=== PATIENT | male | born 1980 | race Caucasian/White ===

== ENCOUNTER 2017-05-01 08:20 | Emergency (ER) | payer MEDICAID ==
[~2017-05-01] VITALS: Ht 182.9 cm; Wt 103.0 kg
[~2017-05-01 08:20] MED LIST: DICL75 PO; SERO300T PO; TRAM50 PO
[2017-05-01 08:23] VITALS: BP 130/78; PULSE 105; RESP 16; TEMP 98.1; O2SAT 98
[2017-05-01] MEDS ORDERED: SERO300T PO (08:35)
[2017-05-01] MEDS ORDERED: BUPR100CR PO (08:35)
--- NOTE | 2017-05-01 08:44 | PD ---
HPI Chief Complaint: Foreign Body Time Seen by Provider: 08:35 Travel History International Travel<30 days: No Contact w/Intl Traveler<30days: No History of Present Illness HPI Patient is a 36 year old male who presents to ER with complaints of possible foreign body in left eye. Patient reports that he was working outside in his yard yesterday, reports something flew into his left eye. Patient reports that he still feels a foreign by station his left eye. Patient's tetanus is up to date. NO OTHER C/O PFSH Past Medical History Hx Anticoagulant Therapy: No Anxiety: Yes Diabetes: No Diminished Hearing: No Psychiatric: Yes (OCD) Immunizations Current: Yes Migraines: Yes Influenza Vaccination: No Past Surgical History Surgical History: No Previous Surgery Social History Alcohol Use: Yes (OCC) Tobacco Use: Yes (1/2 PPD) Substance Use: No Allergies-Medications (Allergen,Severity, Reaction): Coded Allergies: No Known Allergies (Verified , 05/01/17) Reported Meds & Prescriptions Reported Meds & Active Scripts Active Polytrim Opth Drops (Polymyxin/Trimethoprim Sulfate) 10,000-0.1 Unit/Ml-% Soln 2 Drop LEFT EYE Q6HR 10 Days Reported Wellbutrin SR 12 HR (Bupropion HCl) 100 Mg Tab Unknown Dose PO DAILY Seroquel (Quetiapine Fumarate) 300 Mg Tab 600 Mg PO HS Review of Systems General / Constitutional: No: Fever Eyes: Positive: Foreign Body Sensation, Tearing, No: Diploplia, Blurred Vision , Photophobia, Drainage, Pain, Visual changes HENT: No: Headaches Cardiovascular: No: Chest Pain or Discomfort Respiratory: No: Shortness of Breath Gastrointestinal: No: Abdominal Pain Genitourinary: No: Dysuria Musculoskeletal: No: Pain Skin: No Rash Neurologic: No: Weakness Psychiatric: No: Depression Endocrine: No: Polydipsia Hematologic/Lymphatic: No: Easy Bruising Physical Exam Narrative GENERAL: Well-nourished, well-developed patient. SKIN: Focused skin assessment warm/dry. HEAD: Normocephalic. EYES: No scleral icterus. No injection or drainage. Wood's lamp utilized to evaluate for possible corneal abrasion. Patient with pinpoint corneal abrasion to left eye at 11 o'clock position. No hyphema, no hypopyon, no obvious foreign body. NECK: Supple, trachea midline. No JVD or lymphadenopathy. CARDIOVASCULAR: Regular rate and rhythm without murmurs, gallops, or rubs. RESPIRATORY: Breath sounds equal bilaterally. No accessory muscle use. GASTROINTESTINAL: Abdomen soft, non-tender, nondistended. MUSCULOSKELETAL: No cyanosis, or edema. BACK: Nontender without obvious deformity. No CVA tenderness. Data Data Last Documented VS Vital Signs Date Time Temp Pulse Resp B/P Pulse Ox O2 Delivery O2 Flow Rate FiO2 05/01/17 08:23 98.1 105 16 130/78 98 Orders Proparacaine 0.5% Opth Soln (Alcaine 0.5 (05/01/17 08:45) MDM Medical Decision Making Medical Screen Exam Complete: Yes Emergency Medical Condition: Yes Interpretation(s) Vital Signs Date Time Temp Pulse Resp B/P Pulse Ox O2 Delivery O2 Flow Rate FiO2 05/01/17 08:23 98.1 105 16 130/78 98 Differential Diagnosis Differential includes corneal abrasion, hyphema (though unlikely), hypopyon ( though unlikely), foreign body in eye Narrative Course 36-year-old male who presents to emergency with complaints of foreign body in left eye after working in his yard yesterday. Patient does not use contact lenses or glasses at baseline. Tetanus is up-to-date. Proparacaine ophthalmic drops placed into the left eye as well as fluorescein. Wood's lamp utilized to evaluate for possible corneal abrasion. Patient with pinpoint corneal abrasion to left eye at 11 o'clock position. Plan to treat for corneal abrasion. Patient will follow-up with residential framing carpenter and return to emergency room if needed. Diagnosis Primary Impression: Corneal abrasion, left Qualified Code: S05.02XA - Corneal abrasion, left, initial encounter Patient Instructions: General Instructions Additional Instructions: Please follow up with your residential framing carpenter in 2-3 days Use all medications as prescribed Return to the emergency room as needed or if symptoms worsen or persist Please wear protective eye wear Med/Other Pt SpecificInfo: Prescription(s) given Scripts Polymyxin B-Trimethoprim Opth Drops (Polytrim Opth Drops)10,000-0.1 Unit/Ml-% Soln2 Drop LEFT EYE Q6HR 10 Days Ref 0 Prov:Jess Ballard DO 05/01/17 Disposition: 01 DISCHARGE HOME Condition: Stable Jess Ballard DO May 01, 2017 08:44
[2017-05-01] MEDS ORDERED: PROPARACAINE HCL 0.5% OPHT SOLN 15 ML BTL LEFT EYE ONE (08:45)
[2017-05-01] MEDS ORDERED: POLY10O LEFT EYE (08:56)
== END 2017-05-01 09:18 | disposition home or self-care (01) ==
LOC: PHED 08:20
DX: S05.02XA Injury of conjunctiva and corneal abrasion without foreign body, left eye, initial encounter (principal); F17.200 Nicotine dependence, unspecified, uncomplicated; Z86.59 Personal history of other mental and behavioral disorders; W22.8XXA Striking against or struck by other objects, initial encounter; Y93.89 Activity, other specified; Y92.096 Garden or yard of other non-institutional residence as the place of occurrence of the external cause
CPT/HCPCS: 99283

== ENCOUNTER 2017-09-04 21:24 | Emergency (ER) | payer MEDICAID ==
[~2017-09-04] VITALS: Ht 182.9 cm; Wt 104.4 kg
[~2017-09-04 21:24] MED LIST changes: +BUPR100CR PO; -DICL75 PO; +POLY10O LEFT EYE; -TRAM50 PO
[2017-09-04 21:25] VITALS: BP 131/81; PULSE 89; RESP 16; TEMP 98.3; O2SAT 96
[2017-09-04] MEDS ORDERED: MECL-62 PO (21:40)
--- NOTE | 2017-09-04 21:41 | PD ---
HPI Chief Complaint: Dizziness Time Seen by Provider: 21:31 History of Present Illness HPI FOR OVER THE PAST 4 DAYS OR SO MORE AND MORE PERSISTENT DIZZINESS/ROOM SPINNING SENSATION....THAT IS NOT IMPROVING. WORSENED BY SUDDEN MOVEMENTS OF HEAD. PFSH Past Medical History Hx Anticoagulant Therapy: No Anxiety: Yes Diabetes: No Diminished Hearing: No Psychiatric: Yes (OCD) Immunizations Current: Yes Migraines: Yes Social History Alcohol Use: Yes (OCC) Tobacco Use: Yes (1/2 PPD) Substance Use: No Allergies-Medications (Allergen,Severity, Reaction): Coded Allergies: No Known Allergies (Verified Adverse Reaction, Unknown, 09/04/17) Reported Meds & Prescriptions Reported Meds & Active Scripts Active Reported Seroquel (Quetiapine Fumarate) 300 Mg Tab 600 Mg PO HS Review of Systems Except as stated in HPI: all other systems reviewed are Neg General / Constitutional: No: Fever Eyes: No: Visual changes HENT: Positive: Vertigo Cardiovascular: No: Chest Pain or Discomfort Respiratory: No: Shortness of Breath Gastrointestinal: No: Abdominal Pain Genitourinary: No: Dysuria Musculoskeletal: No: Pain Skin: No Rash Neurologic: No: Weakness Psychiatric: No: Depression Endocrine: No: Polydipsia Hematologic/Lymphatic: No: Easy Bruising Physical Exam Narrative GENERAL: SKIN: Warm and dry. HEAD: Atraumatic. Normocephalic. EYES: Pupils equal and round. No scleral icterus. No injection or drainage. ENT: No nasal bleeding or discharge. Mucous membranes pink and moist. BILATERAL EAR IMPACTION NECK: Trachea midline. No JVD. CARDIOVASCULAR: Regular rate and rhythm. RESPIRATORY: No accessory muscle use. Clear to auscultation. Breath sounds equal bilaterally. GASTROINTESTINAL: Abdomen soft, non-tender, nondistended. Hepatic and splenic margins not palpable. MUSCULOSKELETAL: Extremities without clubbing, cyanosis, or edema. No obvious deformities. NEUROLOGICAL: Awake and alert. No obvious cranial nerve deficits. Motor grossly within normal limits. Five out of 5 muscle strength in the arms and legs. Normal speech. PSYCHIATRIC: Appropriate mood and affect; insight and judgment normal. Data Data Last Documented VS Vital Signs Date Time Temp Pulse Resp B/P (MAP) Pulse Ox O2 Delivery O2 Flow Rate FiO2 09/04/17 22:26 79 18 120/62 (81) 82 18 116/76 (89) 09/04/17 21:41 97 Room Air 09/04/17 21:[address] Brain W/O Iv Contrast(Rout) (09/04/17 21:35) Orthostatic Vital Signs (09/04/17 21:35) Blood Glucose (09/04/17 21:35) Ear Irrigation (09/04/17 21:36) MDM Medical Decision Making Medical Screen Exam Complete: Yes Emergency Medical Condition: Yes Medical Record Reviewed: Yes Differential Diagnosis HYPOGLYCEMIA V DEHYDRATION V ICH V SINUSITIS Diagnosis Primary Impression: Impacted cerumen of both ears Additional Impression: Vertigo Patient Instructions: Cerumen Impaction (ED), General Instructions, Vertigo (ED ) Disposition: 01 DISCHARGE HOME Condition: Stable Sam Esparza MD Sep 04, 2017 21:41
[2017-09-04 22:26] VITALS: BP_SYST 116; BP_SYST 120; BP_DIAS 62; BP_DIAS 76; RESP 18
--- NOTE | 2017-09-04 22:29 | RADRPT ---
EXAM DATE/TIME: 09/04/2017 22:10 [place] COMPARISON: No previous studies available for comparison. INDICATIONS : Dizziness. RADIATION DOSE: 59.43 CTDIvol (mGy) MEDICAL HISTORY : None SURGICAL HISTORY : None. ENCOUNTER: Initial ACUITY: 4 - 6 days PAIN SCALE: 0/10 LOCATION: cranial TECHNIQUE: Multiple contiguous axial images were obtained of the head. Using automated exposure control and adj ustment of the mA and/or kV according to patient size, radiation dose was kept as low as reasonably a chievable to obtain optimal diagnostic quality images. DICOM format image data is available electro nically for review and comparison. FINDINGS: CEREBRUM: The ventricles are normal for age. No evidence of midline shift, mass lesion, hemorrhage or acute in farction. No extra-axial fluid collections are seen. POSTERIOR FOSSA: The cerebellum and brainstem are intact. The 4th ventricle is midline. The cerebellopontine angle i s unremarkable. EXTRACRANIAL: The visualized portion of the orbits is intact. SKULL: The calvaria is intact. No evidence of skull fracture. CONCLUSION: Normal examination. Abiel Ortiz MD on September 04, 2017 at 22:25 Board Certified Radiologist. This report was verified electronically.
== END 2017-09-04 22:59 | disposition home or self-care (01) ==
LOC: PHED 21:24
DX: H61.23 Impacted cerumen, bilateral (principal)
CPT/HCPCS: 70450

== ENCOUNTER 2018-03-28 20:32 | Emergency (ER) | payer MEDICAID ==
[~2018-03-28] VITALS: Ht 182.9 cm; Wt 97.5 kg
[~2018-03-28 20:32] MED LIST changes: -BUPR100CR PO; -POLY10O LEFT EYE
[2018-03-28 20:50] VITALS: BP 141/73; PULSE 102; RESP 20; TEMP 98.8; O2SAT 97
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
[2018-03-28] MEDS ORDERED: CEPH-460 PO (21:36)
[2018-03-28] MEDS ORDERED: TETANUS/DIPHTHERIA TOXOID ADULT 0.5 ML VIAL IM ONE (21:45)
== END 2018-03-28 22:07 | disposition home or self-care (01) ==
LOC: PHEFT 20:32
DX: S31.119A Laceration without foreign body of abdominal wall, unspecified quadrant without penetration into peritoneal cavity, initial encounter (principal); F41.9 Anxiety disorder, unspecified; F42.9 Obsessive-compulsive disorder, unspecified; F17.210 Nicotine dependence, cigarettes, uncomplicated; W45.8XXA Other foreign body or object entering through skin, initial encounter
CPT/HCPCS: 99283

== ENCOUNTER 2018-05-22 00:47 | Inpatient (IN) ==
--- NOTE | 2018-05-22 01:25 | ED ---
HPI General Chief Complaint: Psychiatric Symptoms Stated Complaint: Psych Eval / POPD Time Seen by Provider: 05/22/18 01:25 Source: patient and police Mode of arrival: ambulatory Limitations: no limitations History of Present Illness HPI Narrative: 37-year-old white male presents emergency department under [place] act by PD. Patient had texted his mother suicidal messages stating that he was going to lay on the railroad tracks. The patient states that he does suffer from depression and anxiety. He has been off his medications for the last few days. He states that he had lost his medicines. He had recently moved back into his parents house with his girlfriend. They had exhausted all their money staying in hotel rooms. He admits to drinking alcohol and smoking marijuana tonight. He denies any other drugs. He does smoke cigarettes. He denies any toxic ingestions. No recent illness. Symptoms are moderate. Exacerbated by alcohol intake. No alleviating factors. Related Data Home Medications Medication Instructions Recorded Confirmed alprazolam [Xanax] 2 mg PO TID 05/22/18 05/22/18 citalopram [Celexa] 20 mg PO DAILY 05/22/18 05/22/18 Allergies Allergy/AdvReac Type Severity Reaction Status Date / Time No Known Allergies Allergy Unverified 05/22/18 18:35 Review of Systems ROS: all other systems reviewed are negative [facility] Medical History Medical History Depression (Acute) Social History Social History Substance History: Active Abuse Smoking Status: Current every day smoker Tobacco Type: Cigarettes How Often Do You Have a Drink Containing Alcohol: Monthly or less Exam Narrative Exam Narrative: GENERAL: Well-nourished, well-developed patient. Smells of EtOH appears intoxicated SKIN: Warm and dry. HEAD: Normocephalic and atraumatic. EYES: No scleral icterus. No injection or drainage. ENT: No nasal drainage noted. Mucous membranes pink. Airway patent. NECK: Supple, trachea midline. Moves head freely without obvious discomfort. CARDIOVASCULAR: Regular rate and rhythm without murmurs, gallops, or rubs. RESPIRATORY: Breath sounds equal bilaterally. No accessory muscle use. GASTROINTESTINAL: Abdomen soft, non-tender, nondistended. EXTREMITIES: No cyanosis or edema. BACK: Nontender without obvious deformity. No CVA tenderness. NEURO: Patient is alert and oriented. no sensorimotor deficits. Nonfocal. Normal speech. PSYCH: No delusions. No auditory or visual hallucinations. Course Initial Documented Vital Signs Temperature 98.6 F 05/22/18 01:05 Pulse Rate 101 H 05/22/18 01:05 Respiratory Rate 16 05/22/18 01:05 Blood Pressure 123/75 05/22/18 01:05 Pulse Oximetry 99 05/22/18 01:05 Last Documented Vital Signs Temperature 98.6 F 05/22/18 01:05 Pulse Rate 101 H 05/22/18 01:05 Respiratory Rate 16 05/22/18 02:10 Blood Pressure 123/75 05/22/18 01:05 Pulse Oximetry 99 05/22/18 01:05 Medical Decision Making MDM Narrative Medical decision making narrative: Routine laboratory tests for medical clearance Differential Diagnosis Differential Diagnosis: MDM: High Differential diagnoses: Schizophrenia, schizoaffective disorder, bipolar, anxiety, depression, adjustment reaction, mood disorder NOS, ODD, depressive disorder NOS, psychosis NOS, substance induced mood disorder, infection, electrolyte abnormality, malingering. Mental health screening discussed with the patient. Psychiatric screen ordered. Lab Data Result diagrams: 05/22/18 01:45 05/22/18 01:45 Lab Results 05/22/18 05/22/18 05/22/18 Range/Units 01:45 01:45 02:15 WBC 9.3 (4.0-11.0) th/mm3 RBC 5.01 (4.50-5.90) mil/mm3 Hgb 15.7 (13.0-17.0) gm/dL Hct 45.5 (39.0-51.0) % MCV 90.8 (80.0-100.0) fL MCH 31.4 (27.0-34.0) pg MCHC 34.6 (32.0-36.0) % RDW 13.8 (11.6-17.2) % Plt Count 241 (150-450) th/mm3 MPV 8.3 (7.0-11.0) fL Neut % (Auto) 56.4 (16.0-70.0) % Lymph % (Auto) 33.9 (9.0-44.0) % [place] % (Auto) 6.1 (0.0-8.0) % Eos % (Auto) 2.0 (0.0-4.0) % Baso % (Auto) 1.6 (0.0-2.0) % Neut # (Auto) 5.2 (1.8-7.7) th/mm3 Lymph # (Auto) 3.2 (1.0-4.8) th/mm3 [place] # (Auto) 0.6 (0.0-0.9) th/mm3 Eos # (Auto) 0.2 (0.0-0.4) th/mm3 Baso # (Auto) 0.2 (0.0-0.2) th/mm3 WBC Differential . Differential Comment Auto diff final Sodium 141 (136-145) meq/L Potassium 3.5 (3.5-5.1) meq/L Chloride 106 (98-107) meq/L Carbon Dioxide 24.7 (21.0-32.0) meq/L Anion Gap 10 (5-15) meq/L BUN 14 (7-18) mg/dL Creatinine 0.85 (0.60-1.30) mg/dL Estimated GFR Greater than 89 (>89) mL/min Random Glucose 93 (74-106) mg/dL Calcium 8.5 (8.5-10.1) mg/dL Total Bilirubin 0.9 (0.2-1.0) mg/dL AST 35 (15-37) U/L ALT 54 (12-78) U/L Alkaline Phosphatase 29 L (45-117) U/L Total Protein 7.5 (6.4-8.2) g/dL Albumin 4.0 (3.4-5.0) g/dL TSH 1.900 (0.358-3.740) uIU/mL Urine Opiates Screen Neg (Neg) Ur Barbiturates Screen Neg (Neg) Ur Amphetamines Screen Neg (Neg) U Benzodiazepines Scrn Neg (Neg) Urine Cocaine Screen Pos H (Neg) U Cannabinoids Screen Neg (Neg) Serum Alcohol 100 H (0-5) mg/dL Discharge Plan Discharge Disposition Patient Disposition: 01 Discharge Home Discharge Condition Condition: Stable Discharge Order Discharge Orders: Discharge Order (Routine); Ordered 05/22/18 Ordered By: Abiel Ugalde Physicians Team ED Provider: Juan Garza ED Midlevel Provider: Abiel Ugalde Primary Care Provider: Primary Care Rachel Breen Rxs /Orders / Referrals /Forms Prescriptions: No Action alprazolam [Xanax] 2 mg Tablet 2 mg PO TID RF: 0 citalopram [Celexa] 10 mg Tablet 20 mg PO DAILY RF: 0 Status ED Status: Medically Cleared
[2018-05-22 01:51] LABS: Baso # (Auto) 0.2 th/mm3 (0.0-0.2); Baso % (Auto) 1.6 % (0.0-2.0); Eos # (Auto) 0.2 th/mm3 (0.0-0.4); Hematocrit 45.5 % (39.0-51.0); Hemoglobin 15.7 gm/dL (13.0-17.0); Lymph # (Auto) 3.2 th/mm3 (1.0-4.8); Lymph % (Auto) 33.9 % (9.0-44.0); Mean Corpuscular HGB Conc 34.6 % (32.0-36.0); Mean Corpuscular Hemoglobin 31.4 pg (27.0-34.0); Mean Corpuscular Volume 90.8 fL (80.0-100.0); Mean Platelet Volume 8.3 fL (7.0-11.0); Mono # (Auto) 0.6 th/mm3 (0.0-0.9); Mono % (Auto) 6.1 % (0.0-8.0); Neut # (Auto) 5.2 th/mm3 (1.8-7.7); Neut % (Auto) 56.4 % (16.0-70.0); Platelet Count 241 th/mm3 (150-450); Red Blood Count 5.01 mil/mm3 (4.50-5.90); Red Cell Distribution Width 13.8 % (11.6-17.2); White Blood Count 9.3 th/mm3 (4.0-11.0)
[2018-05-22 02:13] LABS: Anion Gap 10 meq/L (5-15); Aspartate Aminotransferase 35 U/L (15-37); Blood Urea Nitrogen 14 mg/dL (7-18); Calcium 8.5 mg/dL (8.5-10.1); Carbon Dioxide 24.7 meq/L (21.0-32.0); Chloride 106 meq/L (98-107); Glomerular Filtration Rate Greater Than 89 mL/min (>89); Glucose,Random 93 mg/dL (74-106); Potassium 3.5 meq/L (3.5-5.1); Sodium 141 meq/L (136-145)
[2018-05-22 02:23] LABS: Alanine Aminotransferase 54 U/L (12-78); Alkaline Phosphatase 29 U/L (45-117); Total Protein 7.5 g/dL (6.4-8.2)
[2018-05-22 02:29] LABS: Alcohol 100 mg/dL (0-5)
[2018-05-22 02:49] LABS: Amphetamine Screen,Urine Neg (Neg); Barbiturate Screen,Urine Neg (Neg); Cannabinoid Screen,Urine Neg (Neg); Cocaine Screen,Urine Pos (Neg)
[2018-05-22 02:58] LABS: Opiate Screen,Urine Neg (Neg)
--- NOTE | 2018-05-22 20:09 | ED ---
HPI - Psych - General Source: patient, family, police Mode of arrival: ambulatory Limitations: no limitations - History of Present Illness MD complaint: suicidal ideation, feels depressed Onset (ago): hour(s) Duration: constant, intermittent History of same: No Relieving factors: none Exacerbating factors: alcohol, drug use Context: recent alcohol abuse, recent drug abuse Associated psychiatric symptoms: depression Associated symptoms: denies other symptoms Treatments prior to arrival: none - General Chief Complaint: Psychiatric Symptoms Stated Complaint: Psych Eval / POPD Time Seen by Provider: 05/22/18 19:00 - History of Present Illness HPI Narrative: HPI Narrative: 37-year-old white, single, male on SSI, with history of depression, anxiety, OCD as well as history of substance use disorder including alcohol and cocaine who presents to emergency department under [place] act by PD. The report alleges that the patient sent his mother text messages stating that he was going to lay on the [place] tracks. He initially denies to the officers that he was suicidal but after he was placed in custody he stated " next time he would most definitely kill himself. After the patient was at [facility] staff received a phone call from his mother letting us know that he had called her and told her ' That's ok, when I get out, I will do it right". She reported feeling concerned for his safety. EMR reviewed. No previous contact with [facility] psychiatry. He was evaluated under a BA in the ED in 2006 for substance abuse including ETOH and Xanax. Patient is seen. Alert, oriented, disheveled appearance. Speech is clear, logical, overinclusive at times, not allowing me to finish my sentences before interrupting as well as speaking over me. Affect is labile with episodes of sobbing and crying as well as episodes of inappropriate smiling specifically when he states" I did not know it was illegal for people to kill themselves". He denies any hallucinations, delusions, paranoia. He denies suicidality and states "I was happy wasted and involved in an argument with my mom. She was telling me and drilling into me that I am a piece of shit". He admits to feeling depressed over his current situation with his son as well as worried over his girlfriend who is living in the [place] and may be . Patient currently is denying suicidal ideation. Patient reports he receives outpatient psychiatric care with Dr. Olivia and that he is prescribed citalopram and alprazolam. Current toxicology is positive for cocaine. Blood alcohol level on arrival was 100. Patient states he had been sober for 3-1/2 years and has had a recent relapse. He denies that he is drinking on a daily basis. (Dilcia Field) - Related Data Home Medications Medication Instructions Recorded Confirmed alprazolam [Xanax] 2 mg PO TID 05/22/18 05/22/18 citalopram [Celexa] 20 mg PO DAILY 05/22/18 05/22/18 Allergies Allergy/AdvReac Type Severity Reaction Status Date / Time No Known Allergies Allergy Unverified 05/22/18 18:35 [facility] - History History Provided By: Patient - Medical History Medical History: Medical History (Last Reviewed 05/22/18 @ 01:40 by LEEROY Oden) Depression - Tobacco History Tobacco Use In Past 30 Days: Yes Smoking Status: Current every day smoker Tobacco Type: Cigarettes - Alcohol History How Often Do You Have a Drink Containing Alcohol: Monthly or less - Substance Use History Substance History: Active Abuse - Substance Use Type Alcohol Status: Active Route Used: By Mouth - Immunization History Tetanus Immunization: Unsure Psychiatric History - Psychiatric History Psychiatric Treatment History: History of Psychiatric Treatment, History Substance Abuse Treatment, History of Hospitalization in a Psychiatric Facility , History of Community Mental Health Treatment History of Inpatient Treatment: No Firearms in Home: No - Psychiatric History Patient reports that he has received treatment at [facility] outpatient clinic for several years. He was discharged from [facility] after they found out he was receiving medication from them as well as from another psychiatrist. He claims that he was not aware that this was not acceptable. He denies any previous suicide attempt. Denies previous psychiatric hospitalization. (Sharlene Fields) - Legal History None reported (Sharlene Fields) Physical Exam - General Limitations: no limitations Mental Status Examination Appearance: Disheveled Consciousness: Alert Orientation: x4 Motor Activity: Normal gait Speech: Unremarkable Language: Adequate Fund of Knowledge: Adequate Attention and Concentration: Adequate Memory: Unremarkable Mood: Sad, Anxious Affect: Labile Thought Process & Associations: Intact, Logical, Goal directed Thought Content: Appropriate Hallucination Type: None Delusion Type: None Suicidal Ideation: No Suicidal Plan: No Suicidal Intention: No Homicidal Ideation: No Homicidal Plan: No Homicidal Intention: No Insight: Poor Judgment: Impulsive Initial Documented Vital Signs Temperature 98.6 F 05/22/18 01:05 Pulse Rate 101 H 05/22/18 01:05 Respiratory Rate 16 05/22/18 01:05 Blood Pressure 123/75 05/22/18 01:05 Pulse Oximetry 99 05/22/18 01:05 Last Documented Vital Signs Temperature 98.6 F 05/22/18 01:05 Pulse Rate 101 H 05/22/18 01:05 Respiratory Rate 16 05/22/18 02:10 Blood Pressure 123/75 05/22/18 01:05 Pulse Oximetry 99 05/22/18 01:05 MDM - Psych - Diagnosis (1) Substance induced mood disorder Status: Acute (2) Substance abuse Status: Acute - Lab Data Result diagrams: 05/22/18 01:45 05/22/18 01:45 - MDM Narrative Medical decision making narrative: At the time of this psychiatric evaluation the patient is denying current suicidal ideation. He presents no evidence of psychosis or froilan. He admits to feeling depressed over stressors involving his 4-year-old son as well as his girlfriend who is homeless and . He also states that he has been off his medication including citalopram and alprazolam for several days after he lost his medications. He has had a recent relapse involving use of cocaine as well as alcohol after 3-1/2 years sobriety. He was presented to an outside hospital, [facility], for treatment but they did not have an appropriate bed for him available. After communication was received from his mother in which she stated she was very concerned for his safety since he called her from the hospital to tell her that after he got discharged he was going to kill himself it was determined that the patient would be admitted here to inpatient psychiatric unit for further evaluation, safety and possible medication adjustment. (Dilcia Field) - Lab Data Lab Results 05/22/18 05/22/18 05/22/18 Range/Units 01:45 01:45 02:15 WBC 9.3 (4.0-11.0) th/mm3 RBC 5.01 (4.50-5.90) mil/mm3 Hgb 15.7 (13.0-17.0) gm/dL Hct 45.5 (39.0-51.0) % MCV 90.8 (80.0-100.0) fL MCH 31.4 (27.0-34.0) pg MCHC 34.6 (32.0-36.0) % RDW 13.8 (11.6-17.2) % Plt Count 241 (150-450) th/mm3 MPV 8.3 (7.0-11.0) fL Neut % (Auto) 56.4 (16.0-70.0) % Lymph % (Auto) 33.9 (9.0-44.0) % [place] % (Auto) 6.1 (0.0-8.0) % Eos % (Auto) 2.0 (0.0-4.0) % Baso % (Auto) 1.6 (0.0-2.0) % Neut # (Auto) 5.2 (1.8-7.7) th/mm3 Lymph # (Auto) 3.2 (1.0-4.8) th/mm3 [place] # (Auto) 0.6 (0.0-0.9) th/mm3 Eos # (Auto) 0.2 (0.0-0.4) th/mm3 Baso # (Auto) 0.2 (0.0-0.2) th/mm3 WBC Differential . Differential Comment Auto diff final Sodium 141 (136-145) meq/L Potassium 3.5 (3.5-5.1) meq/L Chloride 106 (98-107) meq/L Carbon Dioxide 24.7 (21.0-32.0) meq/L Anion Gap 10 (5-15) meq/L BUN 14 (7-18) mg/dL Creatinine 0.85 (0.60-1.30) mg/dL Estimated GFR Greater than 89 (>89) mL/min Random Glucose 93 (74-106) mg/dL Calcium 8.5 (8.5-10.1) mg/dL Total Bilirubin 0.9 (0.2-1.0) mg/dL AST 35 (15-37) U/L ALT 54 (12-78) U/L Alkaline Phosphatase 29 L (45-117) U/L Total Protein 7.5 (6.4-8.2) g/dL Albumin 4.0 (3.4-5.0) g/dL TSH 1.900 (0.358-3.740) uIU/mL Urine Opiates Screen Neg (Neg) Ur Barbiturates Screen Neg (Neg) Ur Amphetamines Screen Neg (Neg) U Benzodiazepines Scrn Neg (Neg) Urine Cocaine Screen Pos H (Neg) U Cannabinoids Screen Neg (Neg) Serum Alcohol 100 H (0-5) mg/dL
[2018-05-22] MEDS ORDERED: LORazepam 1 MG Tablet PO PRN (20:12)
[2018-05-22] MEDS ORDERED: Aluminum/Magnesium/Simethacone Susp 30 ML UDC PO PRN (20:12)
[2018-05-23 09:07] LABS: Calcium 8.5 mg/dL (8.5-10.1); Carbon Dioxide 24.1 meq/L (21.0-32.0); Potassium 3.8 meq/L (3.5-5.1)
[2018-05-23 09:11] LABS: Chol/HDL Ratio 2.76 Ratio; HDL Cholesterol 60.7 mg/dL (40.0-60.0)
[2018-05-23] MEDS ORDERED: LORazepam 1 MG Tablet PO PRN (09:13)
[2018-05-23] MEDS ORDERED: Haloperidol Inj 5 MG/ML Ampul IV.PUSH PRN (09:13)
[2018-05-23] MEDS: Citalopram 20 MG Tablet PO SCH (11:02)
--- NOTE | 2018-05-23 13:59 | ECG ---
Date Performed: 05/23/2018 Time Performed: 13:33:37 PTAGE: 37 years EKG: Sinus rhythm WITH SHORT ID INTERVAL BORDERLINE ECG PREVIOUS TRACING : 11/07/2009 12.43 No significant change from previous tracing noted. DOCTOR: John Ko Interpretating Date/Time 05/23/2018 13:58:16
[2018-05-23 17:05] LABS: Hemoglobin A1c 5.3 % (4.3-6.0)
--- NOTE | 2018-05-23 19:14 | P.HPPSY ---
Provisional Diagnosis Admission Date: May 22, 2018 20:11 [place] I.: Substance induced mood disorder, cocaine and alcohol use disorder Competence Certification of Person's Competence To Provide Express and Informed Consent I have personally examined Carmine Jean, a person being served at [facility] on, May 23, 2018 1902. Express and informed consent means consent voluntarily given in writing, by a competent person, after sufficient explanation and disclosure of the subject matter involved to enable the person to make a knowing and willful decision without any element of force, fraud, deceit, duress, or other form of constraint or coercion. This person is 18 years of age or older, is not now known to be incompetent to consent to treatment with a guardian advocate, and does not have a health care surrogate or proxy currently making medical treatment decisions. I have found this person to be one of the following: [xxx] Competent to provide express and informed consent, as defined above, for voluntary admission to this facility and is competent to provide express and informed consent for treatment. He/she has the consistent capacity to make well reasoned, willful, and knowing decisions concerning his or her medical or mental health treatment. The person fully and consistently understands the purpose of the admission for examination/placement and is fully capable of personally exercising all rights assured under [place] [] Incompetent to provide express and informed consent to voluntary admission, and this is incompetent to provide express and informed consent to treatment. The person must be transferred to involuntary status and a petition for a guardian advocate filed with the Circuit Court. [] Refusing to provide express and informed consent to voluntary admission but is competent to provide express and informed consent for treatment. The person must be discharged or transferred to involuntary status. Form shall be completed within 24 hours of a person's arrival at the receiving facility and filed in the clinical record of each person: 1. Admitted on a voluntary basis 2. Permitted to provide express and informed consent to his/her own treatment 3. Allowed to transfer from involuntary to voluntary status 4. Prior to permitting a person to consent to his or her own treatment after having been previously found incompetent to consent to treatment. History of Present Illness Capacity: Has capacity History of Present Illness: Currently cared for by his mother at this time, unemployed on SSI, with a past psychiatric history of depression, anxiety, OCD, no prior psychiatric admissions , no previous suicide attempt or self-injurious behavior, with a substance use history significant for cocaine use, marijuana use, with a past medical history significant for migraines, who was brought in under [place] act by police after patient had texted his mother with suicidal messages and was found walking on [place] which patient was admitted to the inpatient psychiatry unit for further evaluation and management. As per chart patient has not taken his medications for a few days and was found to have BAL 100, cocaine positive urine toxicology inpatient was noted to have called his mother and told her that he would kill himself. Patient was found lying hospital bed noted B, cooperative. Patient states that he had recently tumultuous relationship with his mother for the past 4 years or worse for the past 3 month and day of admission he recalls having gone to a neighbor's house "drank too much" and used marijuana which she states was laced with cocaine. He also mentions having lost his medications several days ago. He mentions that his mom is his primary support and since having moved back in with his parents has felt that mother is controlling it has caused a lot of conflict. Patient denying suicide ideations at this time stating that he was "really intoxicated" stated having texted his mother and having walked onto the tracks and "really wanted a cease- fire and talk about things". He denies any recent depressive symptoms, although endorsing feeling depressed due to current psychosocial stressors which include being homeless, no medications for several days, having recently relapsed on alcohol and cocaine, and having current girlfriend . Currently denies SI, AVH or delusions. Family psychiatric history: Denies Past psychiatric history: Previous psychiatric diagnoses of depression, anxiety , OCD, denies any previous psychiatric admissions, denies any previous suicide attempt or self-injurious behavior. Patient denies any history of abuse. Patient reports outpatient provider to be Dr. Olivia whom he saw last 1 month ago. Patient previously on citalopram 20 mg daily, alprazolam 2 mg p.o. 3 times daily for anxiety. Substance use history: Tobacco use, cocaine use "rarely" although toxicology was positive for cocaine which she states that the marijuana was "laced" with cocaine. Patient also reports alcohol use twice per month usually 2 drinks at a time. Patient reports marijuana use 1-2 times per year. Patient also mentions remote history of ecstasy and LSD use as a teenager. Patient reports the longest period of sobriety has been 3-1/2 years. Past medical history: Migraines Allergies: Denies Social history: Single, has 1 4-year-old son, unemployed on SSI, no background, no asked to firearms. She reports having a girlfriend who is currently with his child, homeless, 4-year-old son is currently under the care of his parents. - Inpatient Certification I certify that the inpatient services were ordered in accordance with Medicare regulations governing the order. This includes certification that hospital inpatient services are reasonable and necessary and in the case of services not specified as inpatient-only under 42 CFR 419.22(n), that they are appropriately provided as inpatient services in accordance to with the 2-midnight benchmark under 43 CFR 412.3(e) I certify that inpatient psychiatric hospital services are medically necessary. Evaluation and treatment and/or diagnostic testing are expected to improve the patient's condition. The patient needs on a daily basis, active treatment furnished directly by or requiring the supervision of inpatient psychiatric facility personnel. Estimated Total Length of Stay (Days): 5 Plans for Post Hospital Care: Not yet determined Review of Systems All other systems reviewed negative except as stated in HPI PMFSH - History History Provided By: Patient, Medical Record - Medical History Medical History: Medical History (Last Reviewed 05/22/18 @ 01:40 by LEEROY Oden) Depression - Tobacco History Second Hand Smoke Exposure: No Tobacco Use In Past 30 Days: Yes Smoking Status: Current every day smoker Tobacco Type: Cigarettes - Alcohol History How Often Do You Have a Drink Containing Alcohol: Monthly or less - Substance Use History Substance History: Active Abuse - Substance Use Type Alcohol Status: Active Route Used: By Mouth Reason for Use: Calm Down Comment: Patient states that he is only drinking once a month. Patient seems to be minimizing his use. Patient has a history of substance use. He is going to need a follow up on substance use. - Travel History Recent Travel in the [place] Within the Last 8 Weeks: No Recent Travel Out of the Country Within the Last 8 Weeks: No - Immunization History Tetanus Immunization: <5 Years Hx Influenza Vaccine This Season: No Quality Measures - Psychiatric History Psychological trauma history: Denies Violence risk to others in the last 6 months: Low Violence risk to self in the last 6 months: Elevated due to recent suicidal ideations - Substance Abuse History Drug or alcohol use in the past 12 months: See HPI - Patient Strengths Patient's strengths (minimum of 2): Verbal and communicative Medications and Allergies Active Medications: Active Medications Al Hydrox/Mg Hydrox/Simethicone (Mag-Al Plus Susp Liq) 30 ml PO Q6H PRN PRN Reason: DYSPEPSIA Al Hydroxide/Mg Hydroxide (Milk Of Magnesia Liq) 30 ml PO Q12H PRN PRN Reason: Mild Constipation Citalopram Hydrobromide (Celexa) 20 mg PO DAILY [facility] Last Admin: 05/23/18 11:02 Dose: 20 mg Diphenhydramine HCl (Benadryl) 50 mg PO Q8H PRN PRN Reason: INSOMNIA Flumazenil (Romazecon Inj) 0.2 mg IV.PUSH Q1M PRN PRN Reason: OVERSEDATION Haloperidol Lactate (Haldol Inj) 1 mg IV.PUSH Q15M PRN PRN Reason: for severe agitation Hydroxyzine HCl (Atarax) 50 mg PO Q6H PRN PRN Reason: ANXIETY Last Admin: 05/23/18 11:02 Dose: 50 mg Hydroxyzine Pamoate (Vistaril) 50 mg PO Q8H PRN PRN Reason: ANXIETY Last Admin: 05/22/18 20:03 Dose: 50 mg Lorazepam (Ativan) 2 mg PO Q2H PRN PRN Reason: for CIWA 11-14 Lorazepam (Ativan Inj) 2 mg IV.PUSH Q2H PRN PRN Reason: for CIWA 11-14 Lorazepam (Ativan Inj) 2 mg IV.PUSH Q1H PRN PRN Reason: for CIWA 15-20 Lorazepam (Ativan Inj) 2 mg IV.PUSH Q15M PRN PRN Reason: for CIWA > 20 Lorazepam (Ativan Inj) 1 mg IV.PUSH Q4H PRN PRN Reason: for CIWA 8-10 Lorazepam (Ativan) 1 mg PO Q4H PRN PRN Reason: for CIWA 8-10 Nicotine (Habitrol 21 Mg Patch.24 Hr) 1 patch T-DERMAL DAILY [facility] Last Admin: 05/23/18 15:30 Dose: 1 patch Patch Removal (Remove Old Patch) 1 each T-DERMAL DAILY JANETTE Allergies Allergy/AdvReac Type Severity Reaction Status Date / Time No Known Allergies Allergy Unverified 05/22/18 18:35 Home Medications Medication Instructions Recorded Confirmed Type alprazolam [Xanax] 2 mg PO TID 05/22/18 05/22/18 History citalopram [Celexa] 20 mg PO DAILY 05/22/18 05/22/18 History Results - Labs CBC & Chem 7: 05/22/18 01:45 05/23/18 08:21 Labs: Laboratory Results - last 24 hr 05/23/18 05/23/18 08:21 08:21 Sodium 141 Potassium 3.8 Chloride 107 Carbon Dioxide 24.1 Anion Gap 10 BUN 15 Creatinine 1.05 Estimated GFR 80 L Random Glucose 142 H Hemoglobin A1c 5.3 Calcium 8.5 Triglycerides 164 H Cholesterol 168 LDL Cholesterol, Calc 75 HDL Cholesterol 60.7 H Cholesterol/HDL Ratio 2.76 Exam Vital signs: Vital Signs 05/22/18 22:00 05/23/18 05:59 05/23/18 17:54 Temperature 98.2 F 97.4 F L 98.3 F Pulse Rate 89 85 87 Respiratory Rate 18 17 18 Blood Pressure 132/89 127/82 121/70 Pulse Oximetry 98 98 99 Intake & Output 05/23/18 05/23/18 05/24/18 06:59 18:59 06:59 Weight 96.1 kg Other: Weight On Admission 96.1 kg Narrative: Patient not noted to be acute distress, no signs of gross motor abnormalities, no signs of tremor or EPS. No signs of psychomotor agitation or retardation. - Constitutional no acute distress, disheveled, cooperative Mental Status Examination Appearance: Disheveled Consciousness: Alert Orientation: x4 Motor Activity: Normal gait Speech: Unremarkable Language: Adequate Fund of Knowledge: Adequate Attention and Concentration: Adequate Memory: Unremarkable Mood: Sad, Anxious Affect: Sad Thought Process & Associations: Intact, Logical, Goal directed Thought Content: Appropriate Hallucination Type: None Delusion Type: None Suicidal Ideation: No Suicidal Plan: No Suicidal Intention: No Homicidal Ideation: No Homicidal Plan: No Homicidal Intention: No Insight: Poor Judgment: Impulsive Assessment and Plan - Assessment (1) Substance induced mood disorder Code(s): F19.94 - Other psychoactive substance use, unspecified with psychoactive substance-induced mood disorder Status: Acute (2) Substance abuse Code(s): F19.10 - Other psychoactive substance abuse, uncomplicated Status: Acute - Plan Plan: Estimated LOS: [] days Patient is a 37-year-old man who carries a diagnosis of depression, anxiety, OCD, no prior psychiatric admissions, no prior suicide attempt or self injurious behavior, with a substance use history significant for recent cocaine and alcohol use, who was brought into the ED under [place] act after patient had texted his mother with suicidal statements as well as having communicated with his mother recently and told him that he would kill himself in the context of recent alcohol and cocaine intoxication and psychosocial stressors. Patient this time will be admitted under voluntary admission for further psychiatric stabilization, observation and safety. Patient has capacity to consent for treatment. We will resume patient citalopram 20 mg p.o. daily, monitor mood and behavior. Discharge planning in progress. Justification for Continued Inpatient Stay: At risk for decompensation a lower level care.
[2018-05-24] MEDS: Citalopram 20 MG Tablet PO SCH (08:34)
--- NOTE | 2018-05-24 12:34 | P.PNPSY ---
Subjective Remarks: Patient seen for follow, chart reviewed. Discussion nursing staff reported the patient had nightmares less evening believes it was due to the nicotine patch. Patient was found sitting in hospital bed noted B, cooperative. Patient state he spoke with his father over the phone which went well but also spoke with his mother briefly which he states continue with relationship discord. Patient states that his aunt from [place] also came down for support which she was appreciated of. Patient continues to report recent events to cause attention to his mother but did not have her wanting to have wanted to hurt himself or take his own life. Patient states that he feels he is feeling better with to be restarted on his antidepressant pain is considering staying with a friend nearby the home upon discharge. Patient noted to be somewhat perseverative on being able to fill his prescriptions for his benzodiazepine upon discharge. Patient again was counseled on risks of benzodiazepine use long-term. Review of Systems All other systems reviewed negative except as stated in HPI Mental Status Examination Appearance: Appropriate Consciousness: Alert Orientation: x4 Motor Activity: Normal gait Speech: Unremarkable Language: Adequate Fund of Knowledge: Adequate Attention and Concentration: Adequate Memory: Unremarkable Mood: Anxious Affect: Anxious Thought Process & Associations: Intact, Logical, Goal directed Thought Content: Appropriate Hallucination Type: None Delusion Type: None Suicidal Ideation: No Suicidal Plan: No Suicidal Intention: No Homicidal Ideation: No Homicidal Plan: No Homicidal Intention: No Insight: Fair Judgment: Impulsive Assessment and Plan - Assessment (1) Substance induced mood disorder Code(s): F19.94 - Other psychoactive substance use, unspecified with psychoactive substance-induced mood disorder Status: Acute (2) Substance abuse Code(s): F19.10 - Other psychoactive substance abuse, uncomplicated Status: Acute - Plan Plan: Patient tolerating resuming treatment well, denying any suicide ideations, reports improvement in mood. Patient agrees to pursue more groups and activities. We will continue current treatment. We will continue to monitor mood and behavior. Collateral information pending. Discharge planning in progress. Justification for Continued Inpatient Stay: At risk for further decompensation if at lower level of care
[2018-05-24 17:52] VITALS: TEMP 98.3
[2018-05-25 05:37] VITALS: BP 132/70; PULSE 72; RESP 16; O2SAT 98
[2018-05-25] MEDS: Citalopram 20 MG Tablet PO SCH (08:23)
--- NOTE | 2018-05-25 15:04 | P.DSPSY ---
Psychiatry Discharge Summary Inpatient Psychiatric care?: Yes Advance Directives: No Mental Health Advance Directive: No Health Care Proxy: No - Admission Admission Date: May 22, 2018 20:11 - Admission Diagnosis (1) Substance induced mood disorder Code(s): F19.94 - Other psychoactive substance use, unspecified with psychoactive substance-induced mood disorder (2) Substance abuse Code(s): F19.10 - Other psychoactive substance abuse, uncomplicated Brief History: Currently cared for by his mother at this time, unemployed on [employer], with a past psychiatric history of depression, anxiety, OCD, no prior psychiatric admissions , no previous suicide attempt or self-injurious behavior, with a substance use history significant for cocaine use, marijuana use, with a past medical history significant for migraines, who was brought in under [place] by police after patient had texted his mother with suicidal messages and was found walking on [place] which patient was admitted to the inpatient psychiatry unit for further evaluation and management. As per chart patient has not taken his medications for a few days and was found to have BAL 100, cocaine positive urine toxicology inpatient was noted to have called his mother and told her that he would kill himself. Patient was found lying hospital bed noted B, cooperative. Patient states that he had recently tumultuous relationship with his mother for the past 4 years or worse for the past 3 month and day of admission he recalls having gone to a neighbor's house "drank too much" and used marijuana which she states was laced with cocaine. He also mentions having lost his medications several days ago. He mentions that his mom is his primary support and since having moved back in with his parents has felt that mother is controlling it has caused a lot of conflict. Patient denying suicide ideations at this time stating that he was "really intoxicated" stated having texted his mother and having walked onto the tracks and "really wanted a cease- fire and talk about things". He denies any recent depressive symptoms, although endorsing feeling depressed due to current psychosocial stressors which include being homeless, no medications for several days, having recently relapsed on alcohol and cocaine, and having current girlfriend . Currently denies SI, AVH or delusions. Family psychiatric history: Denies Past psychiatric history: Previous psychiatric diagnoses of depression, anxiety , OCD, denies any previous psychiatric admissions, denies any previous suicide attempt or self-injurious behavior. Patient denies any history of abuse. Patient reports outpatient provider to be Dr. Olivia whom he saw last 1 month ago. Patient previously on citalopram 20 mg daily, alprazolam 2 mg p.o. 3 times daily for anxiety. Substance use history: Tobacco use, cocaine use "rarely" although toxicology was positive for cocaine which she states that the marijuana was "laced" with cocaine. Patient also reports alcohol use twice per month usually 2 drinks at a time. Patient reports marijuana use 1-2 times per year. Patient also mentions remote history of ecstasy and LSD use as a teenager. Patient reports the longest period of sobriety has been 3-1/2 years. Past medical history: Migraines Allergies: Denies Social history: Single, has 1 4-year-old son, unemployed on [employer], no background, no asked to firearms. She reports having a girlfriend who is currently with his child, homeless, 4-year-old son is currently under the care of his parents. Tobacco Use In Past 30 Days: Yes How Often Do You Have a Drink Containing Alcohol: Monthly or less Hospital Course: Patient is a 37-year-old white, single, male on SSI, with a past psychiatric history of depression, anxiety, OCD with no prior psychiatric admissions, no previous suicide attempt or self-injurious behavior, with a substance use history significant for alcohol, cocaine use, marijuana use, with a past medical history significant for migraines, who was brought in [place] police after patient had texted his mother with suicidal messages and was found walking [place] which patient was admitted to the inpatient psychiatry unit for further evaluation and management. Patient was resumed on citalopram 20mg PO daily which he tolerated medications well with minimal side effects. Patient was admitted to a locked, inpatient psychiatric unit. Appropriate precautions were in place throughout patient's hospital stay. Patient was seen and examined on the unit by psychiatry. Psychotropic medications were adjusted. There was no evidence of any suicidality or homicidality on the inpatient unit. Patient's psychotic symptoms improved with the benefit of psychopharmacologic treatment. Counselor has arranged for follow up appointments for continuity of care. On the day of discharge: Patient seen and examined; chart reviewed. Case discussed with nurse and counselor. No behavioral issues overnight. On my examination today, the patient is to be discharged back to parents home. He denies any suicidal or homicidal ideation, intent or plan on direct questioning and contracts for safety. I can elicit no mood symptoms. He denies any audiovisual hallucinations. No delusional material verbalized today. Patient denies any side effects from medications and has a good understanding of medication regimen. No physical complaints. Suicide and violence risk assessment on day of discharge both suggest lower imminent risk, and the patient's level of function is adequate for planned level of outpatient care. Patient has maximized benefit from this inpatient psychiatric hospital stay and will be discharged with follow-up as arranged by counselor. Patient advised to return to psychiatric emergency room for any concerning psychiatric symptoms. Patient agrees with plan. - Discharge Discharge Date: 05/25/18 - Discharge Diagnosis (1) Substance induced mood disorder Code(s): F19.94 - Other psychoactive substance use, unspecified with psychoactive substance-induced mood disorder Status: Acute (2) Substance abuse Code(s): F19.10 - Other psychoactive substance abuse, uncomplicated Status: Acute Discharge Disposition: Home - Discharge Instructions Discharge Diet: Regular Diet Activities You Can Perform: Regular- No Restrictions - Discharge Time > 30 minutes Mental Status Examination Appearance: Appropriate Consciousness: Alert Orientation: x4 Motor Activity: Normal gait Speech: Unremarkable Language: Adequate Fund of Knowledge: Adequate Attention and Concentration: Adequate Memory: Unremarkable Mood: Appropriate Affect: Appropriate Thought Process & Associations: Intact, Logical, Goal directed Thought Content: Appropriate Hallucination Type: None Delusion Type: None Suicidal Ideation: No Suicidal Plan: No Suicidal Intention: No Homicidal Ideation: No Homicidal Plan: No Homicidal Intention: No Insight: Fair Judgment: Impulsive Discharge/Advance Care Plan - Results Vital Signs: Last Vital Signs Temp 98.3 F 05/25/18 05:36 Pulse 72 05/25/18 05:36 Resp 16 05/25/18 05:36 BP 132/70 05/25/18 05:36 Pulse Ox 98 05/25/18 05:36 Lab Results: Laboratory Results Hemoglobin A1c 5.3 % (4.3-6.0) 05/23/18 08:21 Triglycerides 164 mg/dL (42-150) H 05/23/18 08:21 Cholesterol 168 mg/dL (120-200) 05/23/18 08:21 LDL Cholesterol, Calc 75 mg/dL (0-99) 05/23/18 08:21 HDL Cholesterol 60.7 mg/dL (40.0-60.0) H 05/23/18 08:21 TSH 1.900 uIU/mL (0.358-3.740) 05/22/18 01:45 Summary of Procedures: none Pending Results: None - Medications Number of antipsychotic medications at discharge: 0 - Discharge Care Plan Goals to Promote Your Health: * To prevent worsening of your condition and complications * To maintain your health at the optimal level Directions to Meet Your Goals: Take your medications as prescribed Follow your dietary instruction Follow activity as directed Keep your appointments as scheduled Take your immunizations and boosters as scheduled If your symptoms worsen call your PCP, if no PCP go to Urgent Care Center or Emergency Room For 02/05 questions related to your inpatient stay or results of tests pending at discharge, please contact Dr. Brandon Vazquez MD at Smoking is Dangerous to Your Health. Avoid second hand smoking
== END 2018-05-25 15:15 | disposition home or self-care (01) ==
LOC: NEPD 00:47 → NEDA 20:11 → H270 21:35 → H260 05-23 14:56
PROVIDERS: ADMIT Student in an Organized Health Care Education/Training Program; ATTEND Student in an Organized Health Care Education/Training Program